=== PATIENT | male | born 1945 | race Two or more races ===

== ENCOUNTER 2017-09-15 12:56 | Inpatient (IN) | payer MEDICARE, MEDICAID ==
[~2017-09-15] VITALS: Ht 175.3 cm; Wt 84.0 kg
[2017-09-15] MEDS ORDERED: SODIUM CHLORIDE 0.9% 1,000 ML IV ONE ×2 (13:06)
[2017-09-15] MEDS ORDERED: InsuLIN REG 1unit/0.01ml Soln (100units/ml) IV ONE (13:15)
[2017-09-15] MEDS ORDERED: InsuLIN R (HUMAN) 100 UNITS in SODIUM CHL 0.9% 99 ML IV SCH ×2 (13:38→17:30)
[2017-09-15] MEDS ORDERED: DEXTROSE (50%) 50ML SYRG IV PRN ×2 (13:45→17:30)
[2017-09-15 13:58] LABS: Basophils # (auto) 0 uL; Basophils % (auto) 0.2 % (0.0-2.0); Eosinophils # (auto) 0 uL; Eosinophils % (auto) 0.1 % (0.0-7.0); Hemoglobin 17.8 g/dL (13.5-17.5); Lymphocytes # (auto) 0.5 uL; Lymphocytes % (auto) 2.8 % (10.0-50.0); Mean Corpuscular Hemoglobin 31.2 pg (28.0-32.0); Mean Corpuscular Hgb Conc. 30.2 g/dL (32.0-36.0); Mean Corpuscular Volume 103.4 fL (80.0-100.0); Monocytes # (auto) 0.8 uL; Monocytes % (auto) 4.2 % (0.0-12.0); Neutrophils # (auto) 17.1 uL; Neutrophils % (auto) 92.7 % (37.0-80.0); Nucleated Red Blood Cells % 0.1 %; Platelet Count (auto) 283 10^3/uL (140-450); Red Cell Distribution Width 15.8 % (11.8-14.3); White Blood Cell 18.4 10^3/uL (4.4-10.8)
[2017-09-15 14:00] LABS: Hematocrit 58.9 % (41.0-53.0)
[2017-09-15 14:10] LABS: INR 0.97 (0.9-1.15); Partial Thromboplastin Time 29.1 sec (22.64-33.71); Prothrombin Time 10.6 sec (9.37-12.3)
[2017-09-15 14:14] LABS: Alanine Aminotransferase 21 U/L (16-61); Albumin 4.2 g/dL (3.4-5.0); Alkaline Phosphatase 120 U/L (45-117); Aspartate Aminotransferase 9 U/L (15-37); BUN/Creatinine Ratio 16.5; Bilirubin, Total 0.5 mg/dL (0.2-1.0); Blood Urea Nitrogen 27 mg/dL (7-18); Calcium 9.3 mg/dL (8.5-10.1); Chloride 99 mmol/L (98-107); GFR African American 54 mL/min; GFR Non-African American 44 mL/min; Potassium 4.8 mmol/L (3.5-5.1); Sodium 135 mmol/L (136-145); Total Protein 9.4 g/dL (6.4-8.2)
[2017-09-15] MEDS ORDERED: SODIUM BICARBONATE 8.4 % INJ 50ML VIAL IV ONE (14:30)
[2017-09-15 14:43] LABS: Urine Bacteria NONE SEEN /hpf (None Seen); Urine Blood 1+ /uL (Negative); Urine Hyaline Cast FEW /lpf (0 - 2); Urine Specific Gravity 1.025 (1.001-1.035); Urine WBC 8 /hpf (0 - 3)
[2017-09-15] MEDS: ACCU-CHEK COMFORT CURVE STRIP VI SCH ×8 (15:08→23:45)
[2017-09-15 15:29] LABS: Anion Gap 30 (5-15)
[2017-09-15 15:33] LABS: Carbon Dioxide 6 mmol/L (21-32); Glucose 556 mg/dL (74-106)
[2017-09-15] MEDS ORDERED: PIPERACILLIN-TAZOB 3.375GM 50 ML IV ONE (17:15)
[2017-09-15] MEDS ORDERED: NITROGLYCERIN 0.4 MG SL TAB SL PRN (17:30)
[2017-09-15] MEDS ORDERED: LACTULOSE 20Gm/30ML SOLN PO PRN (17:30)
[2017-09-15] MEDS ORDERED: PROMETHAZINE HCL 25 MG/ML 1ML IV PRN (17:30)
[2017-09-15] MEDS ORDERED: TEMAZEPAM 15 MG CAP PO PRN (17:30)
[2017-09-15] MEDS ORDERED: LORazepam 0.5 MG TAB PO PRN (17:30)
[2017-09-15] MEDS ORDERED: MORPHINE SULFATE 4 MG/ML SYR/VIAL IV PRN ×2 (17:30)
[2017-09-15] MEDS ORDERED: ACETAMINOPHEN 500 MG TAB PO PRN (17:30)
[2017-09-15] MEDS ORDERED: HYDROcodone-ACET 5/325MG TAB PO PRN (17:30)
[2017-09-15] MEDS: SODIUM CHLORIDE 0.9% 1,000 ML IV SCH ×3 (18:27→23:42)
[2017-09-15 18:28] LABS: BUN/Creatinine Ratio 18.8; Calcium 7.6 mg/dL (8.5-10.1); Potassium 3.9 mmol/L (3.5-5.1)
[2017-09-15 18:30] LABS: Lactic Acid w/Reflex 2.5 mmol/L (0.4-2.0)
[2017-09-15] MEDS ORDERED: SODIUM CHLORIDE 0.9% 1,000 ML IV SCH (21:30)
[2017-09-15 21:47] LABS: Alcohol, Urine < 3.0 mg/dL (0-5); Amphetamine Screen, Urine NEGATIVE (NEGATIVE); Barbiturate Scree,Urine NEGATIVE (NEGATIVE); Benzodiazephine Screen, Urine NEGATIVE (NEGATIVE); Cannabinoid Screen, Urine NEGATIVE (NEGATIVE); Cocaine Screen, Urine NEGATIVE (NEGATIVE); Opiate Scree,Urine NEGATIVE (NEGATIVE); Phencyclidine Screen, Urine NEGATIVE (NEGATIVE)
[2017-09-16] MEDS: ACCU-CHEK COMFORT CURVE STRIP VI SCH ×8 (01:24→23:36)
[2017-09-16 01:41] LABS: Calcium 7.3 mg/dL (8.5-10.1); Potassium 3.7 mmol/L (3.5-5.1)
[2017-09-16] MEDS ORDERED: DEXTROSE (50%) 50ML SYRG IV PRN (03:15)
[2017-09-16] MEDS: InsuLIN REG 1unit/0.01ml Soln (100units/ml) SC SCH ×6 (04:08→23:42)
[2017-09-16 04:10] VITALS: BP 134/61
[2017-09-16] MEDS ORDERED: INFLUENZA QUAD 2017-2018 0.5 ML SYRG IM ONE (05:30)
[2017-09-16] MEDS ORDERED: PNEUMOCOCCAL VACC POLYS 25 MCG/0.5 ML VIAL IM ONE (05:30)
[2017-09-16] MEDS: SODIUM CHLORIDE 0.9% 1,000 ML IV SCH ×3 (05:46→19:30)
[2017-09-16 07:53] LABS: Basophils # (auto) 0.1 uL; Basophils % (auto) 0.5 % (0.0-2.0); Eosinophils # (auto) 0 uL; Eosinophils % (auto) 0.1 % (0.0-7.0); Hemoglobin 14.5 g/dL (13.5-17.5); Lymphocytes % (auto) 6.6 % (10.0-50.0); Mean Corpuscular Hemoglobin 31.5 pg (28.0-32.0); Mean Corpuscular Volume 95.5 fL (80.0-100.0); Monocytes # (auto) 1.3 uL; Monocytes % (auto) 8.7 % (0.0-12.0); Neutrophils % (auto) 84.1 % (37.0-80.0); Nucleated Red Blood Cells % 0.1 %; Platelet Count (auto) 224 10^3/uL (140-450); Red Blood Cells 4.61 10^6/uL (4.5-5.90); Red Cell Distribution Width 13.9 % (11.8-14.3); White Blood Cell 15.4 10^3/uL (4.4-10.8)
[2017-09-16 08:16] LABS: Albumin 2.7 g/dL (3.4-5.0); BUN/Creatinine Ratio 22.2; Bilirubin, Total 0.3 mg/dL (0.2-1.0); Calcium 7.4 mg/dL (8.5-10.1); Potassium 3.6 mmol/L (3.5-5.1); Total Protein 6.2 g/dL (6.4-8.2)
[2017-09-16] MEDS: cefTRIAXone 1GM/10ml IVPUSH 10 ML IV SCH (08:45)
[2017-09-16] MEDS: ENOXAPARIN SOD 40 MG/0.4 ML SYRINGE SC SCH (08:46)
[2017-09-16 09:00] VITALS: BP 120/64
[2017-09-16 12:00] LABS: BUN/Creatinine Ratio 23.8; Potassium 3.7 mmol/L (3.5-5.1)
[2017-09-16 13:00] VITALS: BP 132/78
[2017-09-16 17:07] VITALS: BP 118/68
[2017-09-16 22:00] VITALS: BP 132/76
[2017-09-16] MEDS: PANTOPRAZOLE 40 MG/10 ML VIAL IV SCH (22:48)
[2017-09-17] MEDS: SODIUM CHLORIDE 0.9% 1,000 ML IV SCH ×4 (02:33→22:27)
[2017-09-17] MEDS: ACCU-CHEK COMFORT CURVE STRIP VI SCH ×5 (04:00→20:00)
[2017-09-17] MEDS: InsuLIN REG 1unit/0.01ml Soln (100units/ml) SC SCH ×5 (04:11→21:15)
[2017-09-17 05:00] VITALS: BP 142/84
[2017-09-17 07:46] LABS: Albumin 2.4 g/dL (3.4-5.0); Calcium 7.1 mg/dL (8.5-10.1)
[2017-09-17 07:48] LABS: Bilirubin, Total 0.4 mg/dL (0.2-1.0); Total Protein 5.7 g/dL (6.4-8.2)
[2017-09-17 08:13] LABS: Basophils # (auto) 0 uL; Basophils % (auto) 0.4 % (0.0-2.0); Eosinophils # (auto) 0 uL; Eosinophils % (auto) 0.3 % (0.0-7.0); Hematocrit 40.6 % (41.0-53.0); Hemoglobin 13.5 g/dL (13.5-17.5); Lymphocytes # (auto) 0.8 uL; Lymphocytes % (auto) 12.4 % (10.0-50.0); Mean Corpuscular Hemoglobin 31.4 pg (28.0-32.0); Mean Corpuscular Hgb Conc. 33.3 g/dL (32.0-36.0); Mean Corpuscular Volume 94.4 fL (80.0-100.0); Monocytes # (auto) 0.6 uL; Neutrophils # (auto) 5.1 uL; Neutrophils % (auto) 77.9 % (37.0-80.0); Platelet Count (auto) 209 10^3/uL (140-450); Red Cell Distribution Width 13.8 % (11.8-14.3); White Blood Cell 6.5 10^3/uL (4.4-10.8)
[2017-09-17 08:18] VITALS: BP 136/77
[2017-09-17] MEDS: cefTRIAXone 1GM/10ml IVPUSH 10 ML IV SCH (09:06)
[2017-09-17] MEDS: PANTOPRAZOLE 40 MG/10 ML VIAL IV SCH ×2 (09:06→22:28)
[2017-09-17] MEDS: ENOXAPARIN SOD 40 MG/0.4 ML SYRINGE SC SCH (09:06)
[2017-09-17 10:36] LABS: Amylase 171 U/L (25-115); Lipase 1022 U/L (73-393)
[2017-09-17] MEDS ORDERED: POTASSIUM CHL 10% (20 MEQ/15ML) 15ml ORAL SOLN GT ONE (10:45)
[2017-09-17 11:56] VITALS: BP 145/82
[2017-09-17 16:27] VITALS: BP 135/82
[2017-09-18] MEDS: InsuLIN REG 1unit/0.01ml Soln (100units/ml) SC SCH ×4 (02:16→13:13)
[2017-09-18] MEDS: ACCU-CHEK COMFORT CURVE STRIP VI SCH ×4 (04:00→11:59)
[2017-09-18] MEDS: SODIUM CHLORIDE 0.9% 1,000 ML IV SCH ×2 (04:44→09:21)
[2017-09-18 05:00] VITALS: BP 145/90
[2017-09-18 06:26] LABS: Basophils # (auto) 0 uL; Basophils % (auto) 0.9 % (0.0-2.0); Eosinophils # (auto) 0.1 uL; Eosinophils % (auto) 2.1 % (0.0-7.0); Hematocrit 38.6 % (41.0-53.0); Hemoglobin 13.2 g/dL (13.5-17.5); Lymphocytes # (auto) 0.8 uL; Lymphocytes % (auto) 17.7 % (10.0-50.0); Mean Corpuscular Hgb Conc. 34.1 g/dL (32.0-36.0); Mean Corpuscular Volume 93.7 fL (80.0-100.0); Monocytes # (auto) 0.6 uL; Monocytes % (auto) 13.6 % (0.0-12.0); Neutrophils # (auto) 2.8 uL; Neutrophils % (auto) 65.7 % (37.0-80.0); Nucleated Red Blood Cells % 0.1 %; Platelet Count (auto) 194 10^3/uL (140-450); Red Blood Cells 4.12 10^6/uL (4.5-5.90); White Blood Cell 4.3 10^3/uL (4.4-10.8)
[2017-09-18 06:43] LABS: Albumin 2.4 g/dL (3.4-5.0)
[2017-09-18 06:45] LABS: BUN/Creatinine Ratio 14.8
[2017-09-18 06:48] LABS: Bilirubin, Total 0.6 mg/dL (0.2-1.0); Total Protein 5.5 g/dL (6.4-8.2)
[2017-09-18 07:10] LABS: Potassium 2.9 mmol/L (3.5-5.1)
[2017-09-18 09:00] VITALS: BP 140/89
[2017-09-18] MEDS: PANTOPRAZOLE 40 MG/10 ML VIAL IV SCH (09:20)
[2017-09-18] MEDS: ENOXAPARIN SOD 40 MG/0.4 ML SYRINGE SC SCH (09:20)
[2017-09-18] MEDS: cefTRIAXone 1GM/10ml IVPUSH 10 ML IV SCH (09:20)
[2017-09-18] MEDS ORDERED: POTASSIUM CHL 10% (20 MEQ/15ML) 15ml ORAL SOLN PO ONE (10:15)
[2017-09-18 13:00] VITALS: BP 127/83
[2017-09-18 17:00] VITALS: BP 136/84
[2017-09-18] MEDS ORDERED: POTASSIUM CHL 10% (20 MEQ/15ML) 15ml ORAL SOLN GT SCH (18:00)
== END 2017-09-18 18:00 | disposition home or self-care (01) | DRG 871 ==
LOC: ER 12:56 → TELE 12:57 → TELE-EAST 09-16 04:11
PROVIDERS: ADMIT Internal Medicine; ATTEND Family Medicine
DX: A41.9 Sepsis, unspecified organism (principal); E11.10 Type 2 diabetes mellitus with ketoacidosis without coma; N17.9 Acute kidney failure, unspecified; K85.90 Acute pancreatitis without necrosis or infection, unspecified; N39.0 Urinary tract infection, site not specified; E86.0 Dehydration; E87.6 Hypokalemia; Z83.3 Family history of diabetes mellitus; Z90.49 Acquired absence of other specified parts of digestive tract; Z91.19 Patient's noncompliance with other medical treatment and regimen; Z23 Encounter for immunization
CPT/HCPCS: 36415; 36600; 71045; 74176; 80048; 80053; 80061; 80307; 81001; 82010; 82150; 82805; 82962; 83036; 83605; 83690; 83735; 84443; 84484; 85025; 85610; 85652; 85730; 87040; 87086; 87088; 87186; 93005; 96361; 96365; 96375; 99291; C9113; J1815; J2543

== ENCOUNTER 2019-06-26 14:59 | Emergency (ER) | payer OTHER, MEDICAID ==
[~2019-06-26] VITALS: Ht 170.2 cm; Wt 59.9 kg
[2019-06-26] MEDS ORDERED: SODIUM CHLORIDE 0.9% 1,000 ML IV ONE (15:05)
[2019-06-26] MEDS ORDERED: InsuLIN REG 1unit/0.01ml Soln (100units/ml) IV ONE (15:15)
[2019-06-26 15:52] LABS: Basophils # (auto) 0.1 uL; Basophils % (auto) 1.5 % (0.0-2.0); Eosinophils # (auto) 0.1 uL; Eosinophils % (auto) 2.2 % (0.0-7.0); Hematocrit 45.5 % (41.0-53.0); Hemoglobin 15.4 g/dL (13.5-17.5); Lymphocytes # (auto) 1.1 uL; Lymphocytes % (auto) 22.4 % (10.0-50.0); Mean Corpuscular Hgb Conc. 33.8 g/dL (32.0-36.0); Mean Corpuscular Volume 94.9 fL (80.0-100.0); Monocytes # (auto) 0.4 uL; Monocytes % (auto) 8.1 % (0.0-12.0); Neutrophils # (auto) 3.3 uL; Neutrophils % (auto) 65.8 % (37.0-80.0); Nucleated Red Blood Cells % 0.1 %; Platelet Count (auto) 206 10^3/uL (140-450); Red Cell Distribution Width 13.7 % (11.8-14.3)
[2019-06-26 16:12] LABS: Albumin 4.4 g/dL (3.4-5.0); Calcium 9.1 mg/dL (8.5-10.1); Magnesium 1.9 mg/dL (1.6-2.6); Potassium 4.9 mmol/L (3.5-5.1)
[2019-06-26 16:17] LABS: BUN/Creatinine Ratio 18.6; Bilirubin, Total 0.6 mg/dL (0.2-1.0); Total Protein 7.5 g/dL (6.4-8.2)
[2019-06-26 17:36] LABS: Urine Bacteria NONE SEEN /hpf (None Seen); Urine Blood Negative /uL (Negative); Urine Specific Gravity 1.031 (1.001-1.035); Urine WBC <1 /hpf (0 - 3)
[2019-06-26 18:05] VITALS: BP 119/66
== END 2019-06-26 19:56 | disposition home or self-care (01) ==
LOC: EDBD 14:59 → ER 15:02
DX: E11.65 Type 2 diabetes mellitus with hyperglycemia (principal); Z90.49 Acquired absence of other specified parts of digestive tract
CPT/HCPCS: 36415; 71045; 80053; 81001; 82962; 83735; 85025; 96361; 96374; 99284; J1815; J7030